=== PATIENT | male | born 1995 | race African-American/Black ===

== ENCOUNTER → 2017-04-29 | Outpatient (CLI) | payer BC ==
--- NOTE | 2017-04-29 13:33 | XR ---
EXAMINATION TYPE: XR sinus DATE OF EXAM: 04/29/2017 COMPARISON: NONE HISTORY: Sinusitis congestion headache TECHNIQUE: 4 view sinus study FINDINGS: Paranasal sinuses are clear. Some left septal deviation may be present. No significant muco osbaldo thickening is evident. No air-fluid levels are present. Sella is unremarkable IMPRESSION: 1. Normal paranasal sinus study
[2017-04-29 14:12] LABS: Basophils # (A) 0.1 k/uL (0-0.2); Basophils % (A) 0 %; CH 28.8; CHCM 34.4; Eosinophils # (A) 0.2 k/uL (0-0.7); Eosinophils % (A) 2 %; HCT 49.1 % (39.0-53.0); HDW 2.67; HGB 16.7 gm/dL (13.0-17.5); Luc # (Auto) 0.24; Luc % (Auto) 2; Lymphocytes # (A) 3.2 k/uL (1.0-4.8); Lymphocytes % (A) 22 %; MCH 28.7 pg (25.0-35.0); MCHC 34.1 g/dL (31.0-37.0); Mean Platelet Volume 6.4; Monocytes # (A) 0.5 k/uL (0-1.0); Monocytes % (A) 4 %; Neutrophils # (A) 10.2 k/uL (1.3-7.7); Neutrophils % (A) 71 %; RBC 5.84 m/uL (4.30-5.90); RDW 12.6 % (11.5-15.5); WBC 14.4 k/uL (3.8-10.6); WBC (Perox) 14.21
[2017-04-29 14:26] LABS: ALT 41 U/L (21-72); AST 24 U/L (17-59); Alkaline Phosphatase 67 U/L (38-126); Anion Gap 12 mmol/L; Blood Urea Nitrogen 13 mg/dL (9-20); Calcium 9.5 mg/dL (8.4-10.2); Carbon Dioxide 29 mmol/L (22-30); Chloride 103 mmol/L (98-107); Glucose 76 mg/dL (74-99); Non-African American GFR(MDRD) >60 (>60 ml/min/1.73 sqM); Potassium 4.5 mmol/L (3.5-5.1); Sodium 144 mmol/L (137-145); Total Bilirubin 0.6 mg/dL (0.2-1.3); Total Protein 7.7 g/dL (6.3-8.2)
== END | disposition home or self-care (01) ==
LOC: RADXRMAIN 12:41
PROVIDERS: ATTEND Family Medicine
DX: J32.9 Chronic sinusitis, unspecified (principal); J30.9 Allergic rhinitis, unspecified; G43.109 Migraine with aura, not intractable, without status migrainosus
CPT/HCPCS: 70220; 80053; 84439; 84443; 85025

== ENCOUNTER 2021-01-18 06:17 | Emergency (ER) | payer BC, OTHER ==
[2021-01-18] MEDS ORDERED: KETOROLAC 15 MG/ML 1 ML VIAL IM STA (06:45)
--- NOTE | 2021-01-18 06:49 | ED ---
General Adult HPI - General Chief complaint: Extremity Injury, Upper Stated complaint: elbow pain Time Seen by Provider: 01/18/21 06:39 Source: patient, RN notes reviewed, old records reviewed Mode of arrival: ambulatory Limitations: no limitations - History of Present Illness Initial comments: Derik is a 25-year-old male presents emergency department today for left elbow pain. Patient reports she does a lot of repetitive movements at his job at [employer]. 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 Patient reports that he is taken Motrin today for pain. He reports the pain is round and lateral and medial elbow. Denies any fall or trauma to the elbow. Patient is right-handed. Patient reports it's painful to move the elbow with flexion and extension. - Related Data Home Medications Medication Instructions Recorded Confirmed Escitalopram Oxalate [Lexapro] 03/12/15 03/12/15 Montelukast Sodium [Singulair] 03/12/15 03/12/15 Omeprazole [PriLOSEC] 03/12/15 03/12/15 Previous Rx's Medication Instructions Recorded Ibuprofen [Motrin] 600 mg PO Q8HR PRN #30 tab 03/12/15 Ibuprofen [Motrin] 600 mg PO Q8HR PRN #30 tab 01/18/21 Allergies Allergy/AdvReac Type Severity Reaction Status Date / Time Fish Containing Products Allergy Anaphylaxis Verified 01/18/21 06:34 [Fish] Sulfa (Sulfonamide Allergy Rash/Hives Verified 01/18/21 06:34 Antibiotics) fish Allergy Anaphylaxis Uncoded 01/18/21 06:34 liquid gels Allergy Anaphylaxis Uncoded 01/18/21 06:34 Review of Systems ROS Statement: Those systems with pertinent positive or pertinent negative responses have been documented in the HPI. ROS Other: All systems not noted in ROS Statement are negative. Past Medical History Past Medical History: GERD/Reflux Additional Past Medical History / Comment(s): seasonal allergies History of Any Multi-Drug Resistant Organisms: MRSA Date of last positivie culture/infection: 2019 MDRO Source:: right wrist Past Surgical History: No Surgical Hx Reported Past Psychological History: Anxiety, Depression Smoking Status: Former smoker Past Alcohol Use History: Occasional Past Drug Use History: None Reported General Exam - General Exam Comments Initial Comments: 25-year-old male. Alert and oriented. No distress. Limitations: no limitations General appearance: alert, in no apparent distress Head exam: Present: atraumatic, normocephalic, normal inspection Eye exam: Present: normal appearance, PERRL, EOMI. Absent: scleral icterus, conjunctival injection, periorbital swelling ENT exam: Present: normal exam Neck exam: Present: normal inspection Respiratory exam: Present: normal lung sounds bilaterally. Absent: respiratory distress, wheezes, rales, rhonchi, stridor Cardiovascular Exam: Present: regular rate, normal rhythm, normal heart sounds. Absent: systolic murmur, diastolic murmur, rubs, gallop, clicks GI/Abdominal exam: Present: soft, normal bowel sounds. Absent: distended, tenderness, guarding, rebound, rigid Left Shoulder Exam: Absent: abrasion Upper Arm exam: Present: normal inspection, full ROM Elbow exam: Present: tenderness, swelling (Over lateral and medial condyle. Warmth to the joint.). Absent: normal inspection, full ROM Forearm Wrist exam: Present: normal inspection, full ROM Hand Wrist exam: Present: normal inspection Neuro motor exam: Present: wrist extension intact, thumb opposition intact, thumb IP flexion intact, thumb adduction intact, fingers 2-5 abduction intact Vascular: Present: normal capillary refill Back exam: Present: normal inspection Neurological exam: Present: alert Psychiatric exam: Present: normal affect, normal mood Skin exam: Present: warm, dry, intact, normal color. Absent: rash Course Vital Signs 01/18/21 06:28 Temperature 97.8 F Pulse Rate 64 Respiratory 20 Rate Blood Pressure 102/67 O2 Sat by Pulse 97 Oximetry Medical Decision Making - Medical Decision Making 25-year-old male presents to the ER for her left elbow pain with range of motion. He does repetitive movements at work. He does have some tenderness over the medial and lateral epicondyles. Discussed likely concern for tendinitis or early bursitis. There is no significant swelling time. He has pain with flexion and extension. X-ray was reviewed and shows no evidence of fracture. Patient will be discharged and temperature medicine and given Ney wrap. Discussed RICE precautions. Discussed return parameters. We'll refer to orthopedic - Radiology Data Radiology results: report reviewed X-ray of the elbow shows no acute fracture dislocation. No abnorma fat pad l Signs Are Seen. Disposition Clinical Impression: Left elbow tendinitis Disposition: HOME SELF-CARE Condition: Good Instructions (If sedation given, give patient instructions): Tendinitis (ED), Tennis Elbow (ED) Additional Instructions: Patient advised to rest, ice, elevate the arm. Wear the Ney wrap. Patient should take anti-inflammatory medicine as prescribed. Patient follow up with orthopedic if symptoms continue to persist or do not improve after a week. Prescriptions: Ibuprofen [Motrin] 600 mg PO Q8HR PRN #30 tab PRN Reason: Pain Is patient prescribed a controlled substance at d/c from ED?: No Referrals: Zhang Higuera MD [Primary Care Provider] - 1-2 days Marquez Escobedo PAC [PHYSICIAN CONSOLE MANAGER] - 1-2 days Time of Disposition: 07:17
--- NOTE | 2021-01-18 07:02 | XR ---
EXAMINATION TYPE: XR elbow complete LT DATE OF EXAM: 01/18/2021 CLINICAL HISTORY: Injury with pain TECHNIQUE: Frontal, lateral and oblique images of the left elbow are obtained. COMPARISON: None FINDINGS: There is no acute fracture/dislocation evident in the left elbow. No abnormal fat pad sig ns are seen. The overlying soft tissue appears unremarkable. IMPRESSION: There is no acute fracture or dislocation in the left elbow.
[2021-01-18 07:32] VITALS: BP 97/52; PULSE 62; RESP 18; TEMP 98.7
== END 2021-01-18 07:32 | disposition home or self-care (01) ==
LOC: EC 06:17
DX: M77.8 Other enthesopathies, not elsewhere classified (principal); K21.9 Gastro-esophageal reflux disease without esophagitis; F41.9 Anxiety disorder, unspecified; F32.9 Major depressive disorder, single episode, unspecified; Z87.891 Personal history of nicotine dependence
CPT/HCPCS: 73080; 99283; 96372; J1885

== ENCOUNTER 2021-04-03 23:12 | Emergency (ER) | payer OTHER ==
[2021-04-03 23:16] VITALS: BP 134/71; PULSE 63; RESP 18; TEMP 98
--- NOTE | 2021-04-03 23:48 | ED ---
URI HPI - General Chief Complaint: Upper Respiratory Infection Stated Complaint: Head pressure Time Seen by Provider: 04/03/21 23:19 Source: patient Mode of arrival: ambulatory - History of Present Illness Initial Comments: 26-year-old male presents emergency Department with a chief complaint of cough congestion and body aches. Patient reports the symptoms started approximately 2 days ago. He reports a productive cough with yellow sputum production. He also reports URI like symptoms including rhinorrhea, sore throat but no otalgia. States he also has generalized weakness and fatigue. He reports taking Benadryl with no significant improvement in symptoms. He is a smoker. Denies any chest pain shortness of breath at this time. Not Covid vaccinated. Possible expos ure. - Related Data Home Medications Medication Instructions Recorded Confirmed Escitalopram Oxalate [Lexapro] 03/12/15 03/12/15 Montelukast Sodium [Singulair] 03/12/15 03/12/15 Omeprazole [PriLOSEC] 03/12/15 03/12/15 Previous Rx's Medication Instructions Recorded Ibuprofen [Motrin] 600 mg PO Q8HR PRN #30 tab 03/12/15 Ibuprofen [Motrin] 600 mg PO Q8HR PRN #30 tab 01/18/21 Cetirizine HCl [Zyrtec] 10 mg PO DAILY #10 tab 04/04/21 Allergies Allergy/AdvReac Type Severity Reaction Status Date / Time Fish Containing Products Allergy Anaphylaxis Verified 04/03/21 23:16 [Fish] Sulfa (Sulfonamide Allergy Rash/Hives Verified 04/03/21 23:16 Antibiotics) fish Allergy Anaphylaxis Uncoded 04/03/21 23:16 liquid gels Allergy Anaphylaxis Uncoded 04/03/21 23:16 Review of Systems ROS Statement: Those systems with pertinent positive or pertinent negative responses have been documented in the HPI. ROS Other: All systems not noted in ROS Statement are negative. Past Medical History Past Medical History: GERD/Reflux Additional Past Medical History / Comment(s): seasonal allergies History of Any Multi-Drug Resistant Organisms: MRSA Date of last positivie culture/infection: 2019 MDRO Source:: right wrist Past Surgical History: No Surgical Hx Reported Past Psychological History: Anxiety, Depression Smoking Status: Former smoker Past Alcohol Use History: Occasional Past Drug Use History: None Reported General Exam Limitations: no limitations General appearance: alert, in no apparent distress Head exam: Present: atraumatic, normocephalic, normal inspection Eye exam: Present: normal appearance, PERRL, EOMI Pupils: Present: normal accommodation ENT exam: Present: normal exam, normal oropharynx, mucous membranes moist Neck exam: Present: normal inspection, full ROM. Absent: tenderness, lymphadenopathy Respiratory exam: Present: normal lung sounds bilaterally. Absent: respiratory distress Cardiovascular Exam: Present: regular rate, normal rhythm, normal heart sounds Extremities exam: Present: normal inspection, full ROM Back exam: Present: normal inspection, full ROM Neurological exam: Present: alert, oriented X3 Psychiatric exam: Present: normal affect, normal mood Skin exam: Present: warm, dry, intact, normal color Course Vital Signs 04/03/21 23:13 Temperature 98 F Pulse Rate 63 Respiratory 18 Rate Blood Pressure 134/71 O2 Sat by Pulse 98 Oximetry Medical Decision Making - Medical Decision Making 26-year-old male presents emergency Department with a chief complaint of cough congestion and body aches. On Physical examination, patient is well-appearing. Vital signs are within normal limits. Chest x-ray is unremarkable. Covid negative. Advised to follow up PCP. Advised to take Zyrtec. Strict return parameters were thoroughly discussed with patient is worsening agreeable. Case discussed with physician. - Lab Data Lab Results 04/03/21 Range/Units 23:33 Coronavirus (PCR) Not Detected (Not Detectd) Disposition Clinical Impression: Viral respiratory infection Disposition: HOME SELF-CARE Condition: Stable Instructions (If sedation given, give patient instructions): Upper Respiratory Infection (ED) Additional Instructions: Please return to the Emergency Department if symptoms worsen or any other concerns. Is patient prescribed a controlled substance at d/c from ED?: No Referrals: None,Stated [Primary Care Provider] - 1-2 days Time of Disposition: 00:38
--- NOTE | 2021-04-04 00:05 | XR ---
EXAMINATION TYPE: XR chest 2V DATE OF EXAM: 04/03/2021 COMPARISON: NONE HISTORY: Cough and congestion TECHNIQUE: 2 views FINDINGS: Heart and mediastinum are normal. Lungs are clear. Diaphragm is normal. Bony thorax appears normal. IMPRESSION: Normal chest. No change.
== END 2021-04-04 01:22 | disposition home or self-care (01) ==
LOC: EC 23:12
DX: J98.8 Other specified respiratory disorders (principal); R53.1 Weakness; B97.89 Other viral agents as the cause of diseases classified elsewhere; K21.9 Gastro-esophageal reflux disease without esophagitis; F32.9 Major depressive disorder, single episode, unspecified; F41.9 Anxiety disorder, unspecified; Z20.822 Contact with and (suspected) exposure to COVID-19; Z87.891 Personal history of nicotine dependence
CPT/HCPCS: 71046; 87635; 99285

== ENCOUNTER 2021-06-25 00:14 | Emergency (ER) | payer OTHER ==
[2021-06-25 00:24] VITALS: BP 157/75; TEMP 97.9
[2021-06-25] MEDS ORDERED: ONDANSETRON ODT 4 MG TAB PO STA (00:29)
[2021-06-25] MEDS ORDERED: MAG HYDROX/AL HYDROX/SIMETH 30 ML, HYOSCYAMINE ELIXIR 10 ML, LIDOCAINE VISCOUS 2% 10 ML PO STA ×3 (00:30)
--- NOTE | 2021-06-25 02:07 | ED ---
Nausea/Vomiting/Diarrhea HPI - General Chief complaint: Nausea/Vomiting/Diarrhea Stated complaint: nausea, vomiting Time Seen by Provider: 06/25/21 00:29 Source: patient Mode of arrival: ambulatory Limitations: no limitations - History of Present Illness MD complaint: nausea, vomiting Onset/Timin -: hour(s) Description of Vomiting: food contents Location: epigastric Radiation: chest Severity: moderate Quality: other (Burning) Consistency: constant Improves with: none Worsens with: vomiting Associated Symptoms: denies other symptoms - Related Data Home Medications Medication Instructions Recorded Confirmed Escitalopram Oxalate [Lexapro] 03/12/15 03/12/15 Montelukast Sodium [Singulair] 03/12/15 03/12/15 Omeprazole [PriLOSEC] 03/12/15 03/12/15 Previous Rx's Medication Instructions Recorded Ibuprofen [Motrin] 600 mg PO Q8HR PRN #30 tab 03/12/15 Ibuprofen [Motrin] 600 mg PO Q8HR PRN #30 tab 01/18/21 Cetirizine HCl [Zyrtec] 10 mg PO DAILY #10 tab 04/04/21 Famotidine [Pepcid] 20 mg PO BID #14 tablet 06/25/21 Ondansetron Odt [Zofran ODT] 4 mg PO Q8HR PRN #10 tab 06/25/21 Allergies Allergy/AdvReac Type Severity Reaction Status Date / Time Fish Containing Products Allergy Anaphylaxis Verified 06/25/21 00:16 [Fish] Sulfa (Sulfonamide Allergy Rash/Hives Verified 06/25/21 00:16 Antibiotics) fish Allergy Anaphylaxis Uncoded 06/25/21 00:16 liquid gels Allergy Anaphylaxis Uncoded 06/25/21 00:16 Review of Systems ROS Statement: Those systems with pertinent positive or pertinent negative responses have been documented in the HPI. ROS Other: All systems not noted in ROS Statement are negative. Constitutional: Denies: fever, chills Respiratory: Denies: cough, dyspnea Cardiovascular: Reports: chest pain. Denies: palpitations, orthopnea, syncope Gastrointestinal: Reports: abdominal pain, nausea, vomiting. Denies: diarrhea, constipation, hematemesis, melena, hematochezia Genitourinary: Denies: dysuria, hematuria Musculoskeletal: Denies: back pain Skin: Denies: rash Neurological: Denies: headache Past Medical History Past Medical History: GERD/Reflux Additional Past Medical History / Comment(s): seasonal allergies History of Any Multi-Drug Resistant Organisms: MRSA Date of last positivie culture/infection: 2018 MDRO Source:: right wrist Past Surgical History: No Surgical Hx Reported Past Psychological History: Anxiety, Bipolar, Depression Smoking Status: Former smoker Past Alcohol Use History: None Reported Past Drug Use History: Marijuana General Exam Limitations: no limitations General appearance: alert, in no apparent distress Head exam: Present: atraumatic, normocephalic Eye exam: Present: normal appearance. Absent: scleral icterus, conjunctival injection Neck exam: Present: normal inspection, full ROM Respiratory exam: Present: normal lung sounds bilaterally. Absent: respiratory distress, wheezes, rales, rhonchi, stridor Cardiovascular Exam: Present: regular rate, normal rhythm, normal heart sounds. Absent: systolic murmur, diastolic murmur, rubs, gallop GI/Abdominal exam: Present: soft. Absent: distended, tenderness, guarding, rebound, rigid, mass Extremities exam: Present: normal inspection, normal capillary refill. Absent: pedal edema, calf tenderness Back exam: Present: normal inspection. Absent: CVA tenderness (R), CVA tenderness (L) Neurological exam: Present: alert Skin exam: Present: warm, dry, intact, normal color. Absent: rash Course Vital Signs 06/25/21 00:16 Temperature 97.9 F Pulse Rate 66 Respiratory 20 Rate Blood Pressure 157/75 O2 Sat by Pulse 97 Oximetry Medical Decision Making - Medical Decision Making Patient had resolution of all symptoms following medication here feels well and would like to go home. Discussed appropriate further care as well as return parameters. Disposition Clinical Impression: Vomiting Disposition: HOME SELF-CARE Condition: Good Instructions (If sedation given, give patient instructions): Acute Nausea and Vomiting (ED) Prescriptions: Famotidine [Pepcid] 20 mg PO BID #14 tablet Ondansetron Odt [Zofran ODT] 4 mg PO Q8HR PRN #10 tab PRN Reason: Nausea Is patient prescribed a controlled substance at d/c from ED?: No Referrals: None,Stated [Primary Care Provider] - 1-2 days
[2021-06-25 02:28] VITALS: PULSE 63; RESP 18
== END 2021-06-25 02:29 | disposition home or self-care (01) ==
LOC: EC 00:14
DX: R11.2 Nausea with vomiting, unspecified (principal); K21.9 Gastro-esophageal reflux disease without esophagitis; F12.90 Cannabis use, unspecified, uncomplicated; Z87.891 Personal history of nicotine dependence; Z79.1 Long term (current) use of non-steroidal anti-inflammatories (NSAID); Z79.899 Other long term (current) drug therapy
CPT/HCPCS: 99283

== ENCOUNTER 2021-08-06 09:43 | Emergency (ER) | payer OTHER ==
[2021-08-06 09:52] VITALS: BP 128/75; PULSE 59; RESP 18; TEMP 98.8
--- NOTE | 2021-08-06 10:49 | ED ---
URI HPI - General Chief Complaint: Upper Respiratory Infection Stated Complaint: Covid Swab Time Seen by Provider: 08/06/21 10:38 Source: patient, RN notes reviewed Mode of arrival: ambulatory Limitations: no limitations - History of Present Illness Initial Comments: Patient is a 26-year-old male that presents to the emergency department complaining of cough and chest congestion. He notes that he had Covid approximately a year ago and these were same symptoms. He notes he is vaccinated. He notes his roommate recently tested positive for Covid so he came in for Covid test. Patient was otherwise well-appearing in no apparent distress or pain. He denied chest pain headache nausea vomiting diarrhea constipation fever fatigue chills. - Related Data Home Medications Medication Instructions Recorded Confirmed Escitalopram Oxalate [Lexapro] 03/12/15 03/12/15 Montelukast Sodium [Singulair] 03/12/15 03/12/15 Omeprazole [PriLOSEC] 03/12/15 03/12/15 Previous Rx's Medication Instructions Recorded Ibuprofen [Motrin] 600 mg PO Q8HR PRN #30 tab 03/12/15 Ibuprofen [Motrin] 600 mg PO Q8HR PRN #30 tab 01/18/21 Cetirizine HCl [Zyrtec] 10 mg PO DAILY #10 tab 04/04/21 Famotidine [Pepcid] 20 mg PO BID #14 tablet 06/25/21 Ondansetron Odt [Zofran ODT] 4 mg PO Q8HR PRN #10 tab 06/25/21 Allergies Allergy/AdvReac Type Severity Reaction Status Date / Time Fish Containing Products Allergy Anaphylaxis Verified 08/06/21 09:49 [Fish] Sulfa (Sulfonamide Allergy Rash/Hives Verified 08/06/21 09:49 Antibiotics) fish Allergy Anaphylaxis Uncoded 06/25/21 00:16 liquid gels Allergy Anaphylaxis Uncoded 06/25/21 00:16 Review of Systems ROS Statement: Those systems with pertinent positive or pertinent negative responses have been documented in the HPI. ROS Other: All systems not noted in ROS Statement are negative. Past Medical History Past Medical History: GERD/Reflux Additional Past Medical History / Comment(s): seasonal allergies History of Any Multi-Drug Resistant Organisms: MRSA Date of last positivie culture/infection: 2019 MDRO Source:: right wrist Past Surgical History: No Surgical Hx Reported Past Psychological History: Anxiety, Bipolar, Depression Smoking Status: Former smoker Past Alcohol Use History: None Reported Past Drug Use History: Marijuana General Exam Limitations: no limitations General appearance: alert, in no apparent distress Head exam: Present: atraumatic, normocephalic, normal inspection Eye exam: Present: normal appearance, PERRL, EOMI. Absent: scleral icterus, conjunctival injection, periorbital swelling ENT exam: Present: normal exam, mucous membranes moist Neck exam: Present: normal inspection. Absent: tenderness, meningismus, lymphadenopathy Respiratory exam: Present: normal lung sounds bilaterally. Absent: respiratory distress, wheezes, rales, rhonchi, stridor Cardiovascular Exam: Present: regular rate, normal rhythm, normal heart sounds. Absent: systolic murmur, diastolic murmur, rubs, gallop, clicks Extremities exam: Present: normal inspection, full ROM, normal capillary refill. Absent: tenderness, pedal edema, joint swelling, calf tenderness Neurological exam: Present: alert, oriented X3 Psychiatric exam: Present: normal affect, normal mood Skin exam: Present: warm, dry, intact, normal color. Absent: rash Course Vital Signs 08/06/21 09:49 Temperature 98.8 F Pulse Rate 59 L Respiratory 18 Rate Blood Pressure 128/75 O2 Sat by Pulse 98 Oximetry Medical Decision Making - Medical Decision Making 26-year-old male with cough and chest congestion here for Covid test. Covid test ordered. Covid test negative. Patient is up-to-date on his Covid vaccine and does not qualify for exposure prophylaxis monoclonal antibodies. Case discussed with Dr. El, patient discharge home. - Lab Data Lab Results 08/06/21 Range/Units 09:49 Coronavirus (PCR) Not Detected (Not Detectd) Disposition Clinical Impression: Encounter for screening for COVID-19 Disposition: HOME SELF-CARE Condition: Stable Instructions (If sedation given, give patient instructions): Coronavirus Disease 2019 (COVID-19) Additional Instructions: Please return to the Emergency Department if symptoms worsen or any other concerns. Is patient prescribed a controlled substance at d/c from ED?: No Referrals: Kristin Alanis MD [Primary Care Provider] - 1-2 days Time of Disposition: 10:48
== END 2021-08-06 10:51 | disposition home or self-care (01) ==
LOC: EC 09:43
DX: Z20.822 Contact with and (suspected) exposure to COVID-19 (principal); K21.9 Gastro-esophageal reflux disease without esophagitis; F41.9 Anxiety disorder, unspecified; F31.9 Bipolar disorder, unspecified; F12.90 Cannabis use, unspecified, uncomplicated; Z88.2 Allergy status to sulfonamides; Z87.891 Personal history of nicotine dependence
CPT/HCPCS: 87635; 99283

== ENCOUNTER 2021-09-21 23:40 | Emergency (ER) | payer OTHER ==
[2021-09-21 23:44] VITALS: BP 130/79; PULSE 83; RESP 18; TEMP 97.6
--- NOTE | 2021-09-22 00:06 | XR ---
EXAMINATION TYPE: XR chest 2V DATE OF EXAM: 09/22/2021 COMPARISON: 04/03/2021 HISTORY: Cough TECHNIQUE: FINDINGS: Heart and mediastinum are normal. Lungs are clear. Diaphragm is normal. Bony thorax appears normal. IMPRESSION: Normal chest. No change.
[2021-09-22] MEDS ORDERED: guaiFENesin-DM 600/30MG 1 EACH TAB.ER.12H PO STA (00:59)
[2021-09-22] MEDS ORDERED: dexAMETHasone 2 MG TAB PO STA (00:59)
--- NOTE | 2021-09-22 01:00 | ED ---
URI HPI - General Chief Complaint: Upper Respiratory Infection Stated Complaint: SOB Time Seen by Provider: 09/22/21 00:38 Source: patient Mode of arrival: ambulatory Limitations: no limitations - History of Present Illness Initial Comments: 26-year-old male patient presents to the emergency department today for evaluation of cough, congestion, headache. States symptoms were gone on for the last week and a half to 2 weeks. States that today he started to feel little bit more winded so he came in to get checked out. He denies any current fever or chills. Denies nausea or vomiting. Denies any diarrhea. States he is otherwise healthy with no chronic medical conditions. Patient denies any recent rash, chest pain, abdominal pain, constipation, back pain, numbness, tingling, dizziness, weakness, hematuria, dysuria, urinary urgency, urinary frequency, visual changes, or any other complaints. - Related Data Home Medications Medication Instructions Recorded Confirmed Escitalopram Oxalate [Lexapro] 03/12/15 03/12/15 Montelukast Sodium [Singulair] 03/12/15 03/12/15 Omeprazole [PriLOSEC] 03/12/15 03/12/15 Previous Rx's Medication Instructions Recorded Ibuprofen [Motrin] 600 mg PO Q8HR PRN #30 tab 03/12/15 Ibuprofen [Motrin] 600 mg PO Q8HR PRN #30 tab 01/18/21 Cetirizine HCl [Zyrtec] 10 mg PO DAILY #10 tab 04/04/21 Famotidine [Pepcid] 20 mg PO BID #14 tablet 06/25/21 Ondansetron Odt [Zofran ODT] 4 mg PO Q8HR PRN #10 tab 06/25/21 Albuterol Sulfate [Proair Hfa] 1 - 2 puff INHALATION Q6HR PRN 09/22/21 #8.5 gm Dexamethasone 6 mg PO DAILY #9 tablet 09/22/21 guaiFENesin-DM 600/30MG [Mucinex 2 each PO Q12HR PRN #20 tab 09/22/21 Dm] Allergies Allergy/AdvReac Type Severity Reaction Status Date / Time Fish Containing Products Allergy Anaphylaxis Verified 09/21/21 23:44 [Fish] Sulfa (Sulfonamide Allergy Rash/Hives Verified 09/21/21 23:44 Antibiotics) fish Allergy Anaphylaxis Uncoded 09/21/21 23:44 liquid gels Allergy Anaphylaxis Uncoded 09/21/21 23:44 Review of Systems ROS Statement: Those systems with pertinent positive or pertinent negative responses have been documented in the HPI. ROS Other: All systems not noted in ROS Statement are negative. Past Medical History Past Medical History: GERD/Reflux Additional Past Medical History / Comment(s): seasonal allergies History of Any Multi-Drug Resistant Organisms: MRSA Date of last positivie culture/infection: 2019 MDRO Source:: right wrist Past Surgical History: No Surgical Hx Reported Past Psychological History: Anxiety, Bipolar, Depression Smoking Status: Vaper Past Alcohol Use History: None Reported Past Drug Use History: Marijuana General Exam Limitations: no limitations General appearance: alert, in no apparent distress, other (This is a well- developed, well-nourished adult male in no acute distress.) ENT exam: Present: normal exam, normal oropharynx, mucous membranes moist Respiratory exam: Present: normal lung sounds bilaterally. Absent: respiratory distress, wheezes, rales, rhonchi, stridor Cardiovascular Exam: Present: regular rate, normal rhythm, normal heart sounds. Absent: systolic murmur, diastolic murmur, rubs, gallop, clicks GI/Abdominal exam: Present: soft, normal bowel sounds. Absent: distended, tenderness, guarding, rebound, rigid Neurological exam: Present: alert, oriented X3, CN II-XII intact Psychiatric exam: Present: normal affect, normal mood Skin exam: Present: warm, dry, intact, normal color. Absent: rash Course Vital Signs 09/21/21 23:41 Temperature 97.6 F Pulse Rate 83 Respiratory 18 Rate Blood Pressure 130/79 O2 Sat by Pulse 99 Oximetry Medical Decision Making - Medical Decision Making 26-year-old male patient presents to the emergency department today for evaluation of cough, congestion, mild shortness of breath. States his been sick for the last week and a half. Physical examination revealed clear equal lung sounds. He is breathing without difficulty. Speaking full sentences. He did test positive for COVID-19. He'll be given steroids, Proair, and Mucinex DM. He is instructed to follow up with his primary care physician for recheck in 1-2 days. Return parameters were discussed in detail. He verbalizes understanding and agrees with this plan. My attending is Dr. Guardado. - Lab Data Lab Results 09/21/21 Range/Units 23:46 Coronavirus (PCR) Detected A (Not Detectd) - Radiology Data Radiology results: report reviewed, image reviewed Two-view x-ray of the chest is obtained. Report was reviewed in its entirety. Impression by Dr. Santos shows normal chest. No change. Disposition Clinical Impression: COVID-19 Disposition: HOME SELF-CARE Condition: Good Instructions (If sedation given, give patient instructions): Coronavirus Disease 2019 (COVID-19) Additional Instructions: Tips to help you feel better: -Maintain adequate fluid intake - especially water. -Rest, you are healing your body will require extra sleep. -Eat even if you do not feel like it - broth, jello, toast are fine if you cannot eat full meals. -Take tylenol and motrin alternating (if you have no allergies or have not been instructed to avoid these medications) to help with body aches and fevers. -Obtain over the counter vitamin C, zinc, and vitamin D3. -Take medications as prescribed. Follow-up with your primary care physician for recheck in 1-2 days. Return for any new, worsening, or concerning symptoms. Prescriptions: Dexamethasone 6 mg PO DAILY #9 tablet guaiFENesin-DM 600/30MG [Mucinex Dm] 2 each PO Q12HR PRN #20 tab PRN Reason: Cough Albuterol Sulfate [Proair Hfa] 1 - 2 puff INHALATION Q6HR PRN #8.5 gm PRN Reason: Shortness Of Breath Is patient prescribed a controlled substance at d/c from ED?: No Referrals: Kristin Alanis MD [Primary Care Provider] - 1-2 days Time of Disposition: 01:00
== END 2021-09-22 01:37 | disposition home or self-care (01) ==
LOC: EC 23:40
DX: U07.1 COVID-19 (principal); K21.9 Gastro-esophageal reflux disease without esophagitis; F41.9 Anxiety disorder, unspecified; F31.9 Bipolar disorder, unspecified; F17.290 Nicotine dependence, other tobacco product, uncomplicated; F12.90 Cannabis use, unspecified, uncomplicated; Z88.2 Allergy status to sulfonamides
CPT/HCPCS: 99284; 87635; 71046; J8540

== ENCOUNTER 2022-04-01 21:33 | Emergency (ER) | payer BC, OTHER ==
[2022-04-01 22:33] VITALS: BP 132/81; PULSE 70; RESP 20; TEMP 97.8
--- NOTE | 2022-04-02 00:27 | ED ---
URI HPI - General Chief Complaint: Upper Respiratory Infection Stated Complaint: sore throat-wants covid screening Time Seen by Provider: 04/01/22 23:43 Source: patient Mode of arrival: ambulatory Limitations: no limitations - History of Present Illness MD Complaint: sore throat -: hour(s) Severity: mild Quality: burning Consistency: constant Improves With: nothing Worsens With: nothing Context: sick contacts Associated Symptoms: denies other symptoms Treatments Prior to Arrival: none - Related Data Home Medications Medication Instructions Recorded Confirmed Escitalopram Oxalate [Lexapro] 03/12/15 03/12/15 Montelukast Sodium [Singulair] 03/12/15 03/12/15 Omeprazole [PriLOSEC] 03/12/15 03/12/15 Previous Rx's Medication Instructions Recorded Ibuprofen [Motrin] 600 mg PO Q8HR PRN #30 tab 03/12/15 Ibuprofen [Motrin] 600 mg PO Q8HR PRN #30 tab 01/18/21 Cetirizine HCl [Zyrtec] 10 mg PO DAILY #10 tab 04/04/21 Famotidine [Pepcid] 20 mg PO BID #14 tablet 06/25/21 Ondansetron Odt [Zofran ODT] 4 mg PO Q8HR PRN #10 tab 06/25/21 Albuterol Sulfate [Proair Hfa] 1 - 2 puff INHALATION Q6HR PRN 09/22/21 #8.5 gm dexAMETHasone [Dexamethasone] 6 mg PO DAILY #9 tablet 09/22/21 guaiFENesin-DM 600/30MG [Mucinex 2 each PO Q12HR PRN #20 tab 09/22/21 Dm] Benzonatate [Tessalon Perles] 100 mg PO TID PRN #20 capsule 04/02/22 Allergies Allergy/AdvReac Type Severity Reaction Status Date / Time Fish Containing Products Allergy Anaphylaxis Verified 04/01/22 22:33 [Fish] Sulfa (Sulfonamide Allergy Rash/Hives Verified 04/01/22 22:33 Antibiotics) fish Allergy Anaphylaxis Uncoded 04/01/22 22:33 liquid gels Allergy Anaphylaxis Uncoded 04/01/22 22:33 Review of Systems ROS Statement: Those systems with pertinent positive or pertinent negative responses have been documented in the HPI. ROS Other: All systems not noted in ROS Statement are negative. Constitutional: Denies: fever, chills ENT: Reports: throat pain Respiratory: Denies: cough, dyspnea Gastrointestinal: Denies: abdominal pain, vomiting, diarrhea Skin: Denies: rash Neurological: Denies: headache Past Medical History Past Medical History: GERD/Reflux Additional Past Medical History / Comment(s): seasonal allergies History of Any Multi-Drug Resistant Organisms: MRSA Date of last positivie culture/infection: 2019 MDRO Source:: right wrist Past Surgical History: No Surgical Hx Reported Past Psychological History: Anxiety, Bipolar, Depression Smoking Status: Vaper Past Alcohol Use History: None Reported Past Drug Use History: Marijuana General Exam Limitations: no limitations General appearance: alert, in no apparent distress Head exam: Present: atraumatic, normocephalic Eye exam: Present: normal appearance. Absent: scleral icterus, conjunctival injection ENT exam: Present: TM's normal bilaterally, other (Injection of the pharynx) Neck exam: Present: normal inspection, full ROM, lymphadenopathy. Absent: tenderness, meningismus Respiratory exam: Present: normal lung sounds bilaterally. Absent: respiratory distress, wheezes, rales, rhonchi, stridor Cardiovascular Exam: Present: regular rate, normal rhythm, normal heart sounds. Absent: systolic murmur, diastolic murmur, rubs, gallop Extremities exam: Present: normal inspection, normal capillary refill. Absent: pedal edema, calf tenderness Neurological exam: Present: alert Skin exam: Present: warm, dry, intact, normal color. Absent: rash Course Vital Signs 04/01/22 22:28 Temperature 97.8 F Pulse Rate 70 Respiratory 20 Rate Blood Pressure 132/81 O2 Sat by Pulse 99 Oximetry Medical Decision Making - Lab Data Lab Results 04/01/22 Range/Units 22:35 Coronavirus (PCR) Not Detected (Not Detectd) Disposition Clinical Impression: Acute upper respiratory infection Disposition: HOME SELF-CARE Condition: Good Instructions (If sedation given, give patient instructions): Upper Respiratory Infection (ED) Prescriptions: Benzonatate [Tessalon Perles] 100 mg PO TID PRN #20 capsule PRN Reason: Cough Is patient prescribed a controlled substance at d/c from ED?: No Referrals: Kristin Alanis MD [Primary Care Provider] - 1-2 days
== END 2022-04-02 00:36 | disposition home or self-care (01) ==
LOC: EC 21:33
DX: J06.9 Acute upper respiratory infection, unspecified (principal); K21.9 Gastro-esophageal reflux disease without esophagitis; F17.209 Nicotine dependence, unspecified, with unspecified nicotine-induced disorders; Z20.822 Contact with and (suspected) exposure to COVID-19; Z79.899 Other long term (current) drug therapy; Z91.013 Allergy to seafood; Z88.2 Allergy status to sulfonamides; Z91.048 Other nonmedicinal substance allergy status
CPT/HCPCS: 87635; 99283

== ENCOUNTER 2022-04-16 11:26 | Emergency (ER) | payer BC, OTHER ==
[2022-04-16 11:30] VITALS: RESP 18; TEMP 98.2
[2022-04-16] MEDS ORDERED: diphenhydrAMINE 50 MG/ML 1 ML VIAL IVP STA (12:06)
[2022-04-16] MEDS ORDERED: METOCLOPRAMIDE 5 MG/ML 2 ML VIAL IVP STA (12:06)
[2022-04-16] MEDS ORDERED: KETOROLAC 15 MG/ML 1 ML VIAL IVP STA (12:06)
[2022-04-16] MEDS ORDERED: DEXAMETHASONE SOD PHOSPHATE 10 MG/ML 1 ML VIAL IV STA (12:06)
[2022-04-16] MEDS ORDERED: SODIUM CHLORIDE 0.9% 1,000 ML IV STA (12:06)
--- NOTE | 2022-04-16 12:12 | ED ---
Headache HPI - General Chief Complaint: Headache Stated Complaint: Headache Time Seen by Provider: 04/16/22 11:40 Source: patient, RN notes reviewed Mode of arrival: ambulatory - History of Present Illness Initial Comments: This is a 27-year-old male who presents to the emergency department for a migraine. He has a long-standing history of migraines and states that this feels exactly the same. Patient states that this started around 6 AM. He took a sumatriptan, however he ended up throwing it back up. The headache is on the right side. He has associated nausea, vomiting, and photophobia. He was supposed to have an MRI 2 days ago, however he had to reschedule. Currently takes propranolol as a preventative, however he states that this is not very effective. Denies any fevers, chills, sore throat, cough, dyspnea, chest pain, palpitations, abdominal pain, diarrhea, or back pain. MD Complaint: "migraine" Location: right Associated Symptoms: nausea, vomiting, photophobia Treatments Prior to Arrival: migraine medication - Related Data Home Medications Medication Instructions Recorded Confirmed Loratadine [Claritin] 10 mg PO DAILY 04/16/22 04/16/22 Propranolol [Inderal] 20 mg PO DAILY 04/16/22 04/16/22 SUMAtriptan succinate 100 mg PO BID PRN 04/16/22 04/16/22 Previous Rx's Medication Instructions Recorded Ondansetron Odt [Zofran Odt] 4 mg PO Q8HR PRN #20 tab 04/16/22 Allergies Allergy/AdvReac Type Severity Reaction Status Date / Time Fish Containing Products Allergy Anaphylaxis Verified 04/16/22 13:30 [Fish] Sulfa (Sulfonamide Allergy Rash/Hives Verified 04/16/22 13:30 Antibiotics) fish Allergy Anaphylaxis Uncoded 04/01/22 22:33 liquid gels Allergy Anaphylaxis Uncoded 04/01/22 22:33 Review of Systems ROS Statement: Those systems with pertinent positive or pertinent negative responses have been documented in the HPI. ROS Other: All systems not noted in ROS Statement are negative. Past Medical History Past Medical History: GERD/Reflux Additional Past Medical History / Comment(s): seasonal allergies History of Any Multi-Drug Resistant Organisms: MRSA Date of last positivie culture/infection: 2019 MDRO Source:: right wrist Past Surgical History: No Surgical Hx Reported Past Psychological History: Anxiety, Bipolar, Depression Smoking Status: Vaper Past Alcohol Use History: None Reported Past Drug Use History: Marijuana General Exam Limitations: no limitations General appearance: alert, in distress Head exam: Present: atraumatic, normocephalic, normal inspection Eye exam: Present: normal appearance, PERRL, EOMI. Absent: scleral icterus, conjunctival injection, periorbital swelling Respiratory exam: Present: normal lung sounds bilaterally. Absent: respiratory distress, wheezes, rales, rhonchi, stridor Cardiovascular Exam: Present: regular rate, normal rhythm, normal heart sounds. Absent: systolic murmur, diastolic murmur, rubs, gallop, clicks Neurological exam: Present: alert, oriented X3, CN II-XII intact Psychiatric exam: Present: normal affect, normal mood Skin exam: Present: warm, dry, intact, normal color. Absent: rash Course Vital Signs 04/16/22 04/16/22 11:27 13:55 Temperature 98.2 F Pulse Rate 53 L 70 Respiratory 18 18 Rate Blood Pressure 135/76 143/65 O2 Sat by Pulse 100 97 Oximetry Medical Decision Making - Medical Decision Making This is a 27-year-old male who presents to the emergency department for a migraine. Patient was given migraine cocktail consisting of Decadron, Toradol, Reglan, and Benadryl. Patient noted substantial improvement in the headache. He did however note that the medications made him anxious. He was subsequently given 1 mg of Ativan. Lab work does reveal leukocytosis, which is likely reactive from the nausea and vomiting. After the Ativan, he states that he felt much better. Patient states that he feels stable for discharge home. Prescription and starter pack for Zofran provided for any continuation of the nausea. Instructed him to follow-up for the MRI. Return precautions reviewed in depth, the patient is instructed to return to the emergency department with any new, worsening, or concerning symptoms. Patient verbalized understanding. This case was discussed in detail with the attending ED physician. Presentation, findings, and treatment plan discussed in detail as well. - Lab Data Result diagrams: 04/16/22 12:08 04/16/22 12:08 Lab Results 04/16/22 04/16/22 04/16/22 Range/Units 12:08 12:08 12:59 WBC 16.9 H (3.8-10.6) k/uL RBC 5.77 (4.30-5.90) m/uL Hgb 16.1 (13.0-17.5) gm/dL Hct 48.8 (39.0-53.0) % MCV 84.5 (80.0-100.0) fL MCH 27.8 (25.0-35.0) pg MCHC 32.9 (31.0-37.0) g/dL RDW 12.7 (11.5-15.5) % Plt Count 275 (150-450) k/uL MPV 6.7 Neutrophils % 73 % Lymphocytes % 20 % Monocytes % 5 % Eosinophils % 1 % Basophils % 0 % Neutrophils # 12.4 H (1.3-7.7) k/uL Lymphocytes # 3.4 (1.0-4.8) k/uL Monocytes # 0.8 (0-1.0) k/uL Eosinophils # 0.1 (0-0.7) k/uL Basophils # 0.1 (0-0.2) k/uL Sodium 140 (137-145) mmol/L Potassium 4.2 (3.5-5.1) mmol/L Chloride 101 (98-107) mmol/L Carbon Dioxide 30 (22-30) mmol/L Anion Gap 9 mmol/L BUN 11 (9-20) mg/dL Creatinine 0.96 (0.66-1.25) mg/dL Est GFR (CKD-EPI)AfAm >90 (>60 ml/min/1.73 sqM) Est GFR (CKD-EPI)NonAf >90 (>60 ml/min/1.73 sqM) Glucose 120 H (74-99) mg/dL Calcium 9.5 (8.4-10.2) mg/dL Total Bilirubin 1.0 (0.2-1.3) mg/dL AST 30 (17-59) U/L ALT 21 (4-49) U/L Alkaline Phosphatase 75 (38-126) U/L Total Protein 7.3 (6.3-8.2) g/dL Albumin 4.7 (3.5-5.0) g/dL Coronavirus (PCR) Not Detected (Not Detectd) Disposition Clinical Impression: Migraine Disposition: HOME SELF-CARE Instructions (If sedation given, give patient instructions): Migraine Headache (ED) Additional Instructions: Return to the emergency department with any new, worsening, or concerning symptoms. Make sure that you follow through with your MRI. You may take the Zofran up to every 8 hours as needed for nausea and vomiting. Prescriptions: Ondansetron Odt [Zofran Odt] 4 mg PO Q8HR PRN #20 tab PRN Reason: Nausea And Vomiting Is patient prescribed a controlled substance at d/c from ED?: No Referrals: Kristin Alanis MD [Primary Care Provider] - 1-2 days
[2022-04-16 12:16] LABS: Basophils # (A) 0.1 k/uL (0-0.2); Basophils % (A) 0 %; Eosinophils # (A) 0.1 k/uL (0-0.7); Eosinophils % (A) 1 %; HCT 48.8 % (39.0-53.0); HGB 16.1 gm/dL (13.0-17.5); Lymphocytes # (A) 3.4 k/uL (1.0-4.8); Lymphocytes % (A) 20 %; MCH 27.8 pg (25.0-35.0); MCHC 32.9 g/dL (31.0-37.0); MCV 84.5 fL (80.0-100.0); Mean Platelet Volume 6.7; Monocytes # (A) 0.8 k/uL (0-1.0); Monocytes % (A) 5 %; Neutrophils # (A) 12.4 k/uL (1.3-7.7); Neutrophils % (A) 73 %; Platelet Count 275 k/uL (150-450); RBC 5.77 m/uL (4.30-5.90); RDW 12.7 % (11.5-15.5); WBC 16.9 k/uL (3.8-10.6)
[2022-04-16 12:27] LABS: ALT 21 U/L (4-49); AST 30 U/L (17-59); African American GFR (CKD) >90 (>60 ml/min/1.73 sqM); Albumin 4.7 g/dL (3.5-5.0); Alkaline Phosphatase 75 U/L (38-126); Anion Gap 9 mmol/L; Blood Urea Nitrogen 11 mg/dL (9-20); Calcium 9.5 mg/dL (8.4-10.2); Carbon Dioxide 30 mmol/L (22-30); Chloride 101 mmol/L (98-107); Glucose 120 mg/dL (74-99); Non-African American GFR(CKD) >90 (>60 ml/min/1.73 sqM); Potassium 4.2 mmol/L (3.5-5.1); Sodium 140 mmol/L (137-145); Total Protein 7.3 g/dL (6.3-8.2)
[2022-04-16] MEDS ORDERED: LORazepam 1 MG TAB PO STA (13:09)
[2022-04-16] MEDS ORDERED: ONDANSETRON 4 MG ODT STARTER PACK 2 TAB BTL PO STA (13:46)
[2022-04-16 13:56] VITALS: BP 143/65; PULSE 70
== END 2022-04-16 13:57 | disposition home or self-care (01) ==
LOC: EC 11:26
DX: G43.909 Migraine, unspecified, not intractable, without status migrainosus (principal); F17.209 Nicotine dependence, unspecified, with unspecified nicotine-induced disorders; Z20.822 Contact with and (suspected) exposure to COVID-19; Z91.013 Allergy to seafood; Z88.2 Allergy status to sulfonamides; Z88.8 Allergy status to other drugs, medicaments and biological substances
CPT/HCPCS: 36415; 80053; 85025; 87635; 99284; 96374; 96375; 96361; J1200; J1100; J2765; J1885; S0119

== ENCOUNTER → 2022-04-21 | Outpatient (CLI) | payer BC, OTHER | END | disposition home or self-care (01) | LOC: RADMRIMAIN 11:21 | PROVIDERS: ATTEND Family Medicine | DX: Z53.9 Procedure and treatment not carried out, unspecified reason (principal); G43.009 Migraine without aura, not intractable, without status migrainosus ==

== ENCOUNTER → 2022-05-07 | Outpatient (CLI) | payer BC, OTHER ==
--- NOTE | 2022-05-07 08:45 | CT ---
EXAMINATION TYPE: CT brain wo/w con DATE OF EXAM: 05/07/2022 COMPARISON: None HISTORY: 27-year-old male Migraine headaches and with visual disturbances TECHNIQUE: Examination was done in axial plane before and after intravenous contrast. 100 mL Isovue 300 IV contrast is administered. Coronal and sagittal reconstructions performed. CT DLP: 2244 mGycm Automated exposure control for dose reduction was used. FINDINGS: There is no evidence of acute intracranial hemorrhage, acute ischemic changes, mass, mass-effect, or extra-axial fluid collection. There is no effacement of cerebral sulci or basal subarachnoid cister ns. There is no hydrocephalus. There is no midline shift. Lopez-white matter distinction is preserv ed. No enhancing intracranial lesions. Dural venous sinuses are patent. Paranasal sinuses and mastoid air cells are well pneumatized. Slight anterior leftward nasal septal d eviation. Orbits and globes are intact. IMPRESSION: No acute intracranial abnormality seen. No enhancing intracranial lesions. If chronic migraines, mri can be considered to assess for any associated white matter changes.
== END | disposition home or self-care (01) ==
LOC: RADCTMAIN 07:31
PROVIDERS: ATTEND Family Medicine
DX: G43.009 Migraine without aura, not intractable, without status migrainosus (principal); H53.9 Unspecified visual disturbance
CPT/HCPCS: 70470; Q9967